=== PATIENT | male | born 1990 | race Caucasian/White ===

== ENCOUNTER 2017-01-14 02:24 | Emergency (ER) | payer OTHER ==
[~2017-01-14] VITALS: Ht 180.3 cm; Wt 142.1 kg
[2017-01-14 02:30] VITALS: TEMP 36.5; Ht 180.3 cm; Wt 142.1 kg
[2017-01-14] MEDS ORDERED: SODIUM CHLORIDE 0.9% 1000ML 1,000 ML IV ONE (02:45)
[2017-01-14 03:12] LABS: URINE APPEARANCE CLEAR (CLEAR); URINE BILIRUBIN NEG (NEG); URINE COLOR YELLOW; URINE EPITHELIAL CELL AUTO 0-5 /lpf (0-5); URINE NITRITE NEG (NEG); URINE SPECIFIC GRAVITY 1.018 (1.000-1.030); UROBILINOGEN NEG (NEG); ZZUR CULT IF INDIC CLEAN CATCH NO
[2017-01-14 03:12] LABS: BASO % 0.6 %; BASO ABS # 0.06 K/uL (0-0.2); COMPLETE YES; EOS % 4.8 %; HEMATOCRIT 43.4 % (42-52); IG% 0.5 %; LYMPH % 36.6 %; LYMPH ABS # 3.91 K/uL (1.2-3.4); MEAN CELL VOLUME 84.1 fL (80-100); MEAN CORPUSCULAR HEMOGLOBIN 29.8 pg (25-34); MEAN CORPUSCULAR HGB CONC 35.5 g/dl (32-36); MEAN PLATELET VOLUME 10.8 fL (7.4-10.4); NEUT % 48.5 %; PLATELET COUNT 261 K/uL (130-400); RED BLOOD COUNT 5.16 M/uL (4.7-6.1); WHITE BLOOD COUNT 10.67 K/uL (4.8-10.8)
[2017-01-14 03:17] LABS: MANUAL MICROSCOPIC REQUIRED? NO; REVIEW REQ? NO
[2017-01-14 03:23] LABS: CALCIUM 8.8 mg/dl (8.5-10.1); CREATININE 0.78 mg/dl (0.60-1.40); POTASSIUM 2.5 mmol/L (3.5-5.1)
[2017-01-14] MEDS ORDERED: POTASSIUM CHLORIDE 10 MEQ TABCR PO STA (03:24)
[2017-01-14] MEDS ORDERED: POTASSIUM CHLR 20 MEQ / WTR 20 MEQ in PREMIXED WATER 100 ML IV STA (03:24)
[2017-01-14 03:33] LABS: ALB/GLOB RATIO 1.2 (0.9-2); THYROID STIMULATING HORMONE 1.27 uIu/ml (0.300-4.500)
[2017-01-14] MEDS ORDERED: POTASSIUM CHLORIDE 10 MEQ / 100ML WTR IV ONE (03:41)
[2017-01-14 03:51] VITALS: O2SAT 93
[2017-01-14 06:52] LABS: POINT OF CARE TROPONIN I < 0.030 ng/ml (0-0.045)
[2017-01-14 07:33] VITALS: BP 101/49; PULSE 86; O2SAT 97
--- NOTE | 2017-01-14 08:46 | DIAGNOSTIC IMAGING REPORT ---
CHEST ONE VIEW PORTABLE HISTORY: Atypical Chest pain COMPARISON: None. FINDINGS: The lungs are clear. Cardiac silhouette is normal in size. No pleural effusions. No pneumothorax. IMPRESSION: No acute process. Electronically signed by: Jai Riley M.D. 01/14/2017 8:45 AM Dictated Date/Time: 01/14/2017 8:45 AM
--- NOTE | 2017-01-15 02:23 | EMERGENCY ROOM VISIT NOTE ---
History First contact with patient: 02:37 Chief Complaint: CHEST PAIN Stated Complaint: CHEST PAIN/SHORT OF BREATH Nursing Triage Summary: pt reports that he was drinking downtown since 1700. pt had sudden onset of left sided chest pain at 0130 with SOB and diaphoretic. History of Present Illness The patient is a 26 year old male who presents to the Emergency Room with complaints of vague central left-sided chest pain that began approximately one hour prior to arrival. The patient states that he works out of town and is home for the weekend. He went drinking with his significant other tonight, and they were waiting for their ride home from the night, when the patient began experiencing his discomfort. He did feel somewhat short of breath and nauseated. The patient's symptoms persisted for a few moments and are slowly improving. The patient has not had recent fever or chills. No injury or trauma. He does not report nausea or vomiting. He has not been smoking anything tonight or doing drugs. He does admit to drinking alcohol tonight. He does have a history of borderline hypertension but is otherwise considered healthy. He rates his current discomfort a 3/10. Review of Systems More than 10 systems were reviewed and otherwise negative with the exception of history of present illness. Past Medical/Surgical History No chronic medical disease Family History No pertinent family history Social History Smoking Status: Current Every Day Smoker Housing Status: lives with significant other Occupation Status: employed Current/Historical Medications No Active Prescriptions or Reported Meds Physical Exam Vital Signs Date Time Temp Pulse Resp B/P (MAP) Pulse Ox O2 Delivery O2 Flow Rate FiO2 01/14/17 07:33 86 20 101/49 97 01/14/17 06:33 96 16 129/77 97 Room Air 01/14/17 06:05 90 01/14/17 06:00 87 23 111/62 98 Nasal Cannula 2.0 01/14/17 05:47 89 21 108/60 99 Nasal Cannula 2.0 01/14/17 05:17 91 20 99 01/14/17 05:00 91 20 113/75 99 Nasal Cannula 2.0 01/14/17 04:46 95 22 103/70 93 Nasal Cannula 2.0 01/14/17 03:51 95 24 113/53 93 Nasal Cannula 2.0 01/14/17 03:51 93 Nasal Cannula 2.0 01/14/17 02:49 95 Room Air 01/14/17 02:32 102 01/14/17 02:30 36.5 102 28 131/70 97 Room Air 01/14/17 02:30 95 Room Air Pain Rating (0-10): 0 Physical Exam VITALS: Vitals are noted on the nurse's note and reviewed by myself. Vital signs stable. GENERAL: Well-developed, well-nourished, white male, who is in no acute distress and resting comfortably. Patient is cooperative with the examination. HEAD: Normocephalic atraumatic. EARS: External ear normal. External auditory canals clear, tympanic membranes pearly lopez without erythema or effusion bilaterally. EYES: Pupils equal round and reactive to light and accommodation. Conjunctivae without injection, sclerae without icterus. Extraocular movements intact. NOSE: Patent, turbinates without inflammation or discharge. MOUTH: Mucous membranes moist. Tonsils are not enlarged. Pharynx without erythema, blood, or exudate. Uvula midline. Airway patent. NECK: Supple without nuchal rigidity. No lymphadenopathy. No thyromegaly. Cervical spine is nontender. HEART: Regular rate and rhythm without murmurs gallops or rubs. LUNGS: Clear to auscultation bilaterally without wheezes, rales or rhonchi. No retractions or accessory muscle use. ABDOMEN: Positive normal bowel sounds x 4. Soft, nontender, without masses or organomegaly. No guarding or rebound tenderness. MUSCULOSKELETAL: No muscle atrophy, erythema, or edema noted. Full range of motion without joint tenderness in all extremities. Negative Homans sign Medical Decision & Procedures ER Provider Diagnostic Interpretation: CHEST ONE VIEW PORTABLE HISTORY: Atypical Chest pain COMPARISON: None. FINDINGS: The lungs are clear. Cardiac silhouette is normal in size. No pleural effusions. No pneumothorax. IMPRESSION: No acute process. Laboratory Results 01/14/17 02:40 Red Blood Count 5.16, Mean Corpuscular Volume 84.1, Mean Corpuscular Hemoglobin 29.8, Mean Corpuscular Hemoglobin Concent 35.5, Mean Platelet Volume 10.8, Neutrophils (%) (Auto) 48.5, Lymphocytes (%) (Auto) 36.6, Monocytes (%) (Auto) 9.0, Eosinophils (%) (Auto) 4.8, Basophils (%) (Auto) 0.6, Neutrophils # (Auto) 5.18, Lymphocytes # (Auto) 3.91, Monocytes # (Auto) 0.96, Eosinophils # (Auto) 0.51, Basophils # (Auto) 0.06 01/14/17 02:40 Test 01/14/17 02:40 01/14/17 03:00 01/14/17 06:32 White Blood Count 10.67 K/uL (4.8-10.8) Red Blood Count 5.16 M/uL (4.7-6.1) Hemoglobin 15.4 g/dL (14.0-18.0) Hematocrit 43.4 % (42-52) Mean Corpuscular Volume 84.1 fL (80-100) Mean Corpuscular Hemoglobin 29.8 pg (25-34) Mean Corpuscular Hemoglobin Concent 35.5 g/dl (32-36) Platelet Count 261 K/uL (130-400) Mean Platelet Volume 10.8 fL (7.4-10.4) Neutrophils (%) (Auto) 48.5 % Lymphocytes (%) (Auto) 36.6 % Monocytes (%) (Auto) 9.0 % Eosinophils (%) (Auto) 4.8 % Basophils (%) (Auto) 0.6 % Neutrophils # (Auto) 5.18 K/uL (1.4-6.5) Lymphocytes # (Auto) 3.91 K/uL (1.2-3.4) Monocytes # (Auto) 0.96 K/uL (0.11-0.59) Eosinophils # (Auto) 0.51 K/uL (0-0.5) Basophils # (Auto) 0.06 K/uL (0-0.2) RDW Standard Deviation 39.6 fL (36.4-46.3) RDW Coefficient of Variation 13.0 % (11.5-14.5) Immature Granulocyte % (Auto) 0.5 % Immature Granulocyte # (Auto) 0.05 K/uL (0.00-0.02) Anion Gap 10.0 mmol/L (3-11) Est Creatinine Clear Calc Drug Dose 207.0 ml/min Estimated GFR () 144.4 Estimated GFR (Non- 124.6 BUN/Creatinine Ratio 11.0 (10-20) Calcium Level 8.8 mg/dl (8.5-10.1) Total Bilirubin 0.3 mg/dl (0.2-1) Aspartate Amino Transf (AST/SGOT) 20 U/L (15-37) Alanine Aminotransferase (ALT/SGPT) 41 U/L (12-78) Alkaline Phosphatase 59 U/L (45-117) Total Protein 7.8 gm/dl (6.4-8.2) Albumin 4.2 gm/dl (3.4-5.0) Globulin 3.6 gm/dl (2.5-4.0) Albumin/Globulin Ratio 1.2 (0.9-2) Lipase 120 U/L (73-393) Thyroid Stimulating Hormone (TSH) 1.270 uIu/ml (0.300-4.500) Ethyl Alcohol mg/dL 159.0 mg/dl (0-3) Urine Color YELLOW Urine Appearance CLEAR (CLEAR) Urine pH 5.0 (4.5-7.5) Urine Specific [place] 1.018 (1.000-1.030) Urine Protein NEG (NEG) Urine Glucose (UA) NEG (NEG) Urine Ketones NEG (NEG) Urine Occult Blood NEG (NEG) Urine Nitrite NEG (NEG) Urine Bilirubin NEG (NEG) Urine Urobilinogen NEG (NEG) Urine Leukocyte Esterase TRACE (NEG) Urine WBC (Auto) 0 /hpf (0-5) Urine RBC (Auto) 0-4 /hpf (0-4) Urine Hyaline Casts (Auto) 0 /lpf (0-5) Urine Epithelial Cells (Auto) 0-5 /lpf (0-5) Urine Bacteria (Auto) NEG (NEG) Bedside D-Dimer 209 ng/mlFEU (0-450) Bedside Troponin I < 0.030 ng/ml (0-0.045) Medications Administered Medications (Trade) Dose Ordered Sig/Rupert Route Start Time Stop Time Status Last Admin Dose Admin Sodium Chloride 1,000 ml @ 999 mls/hr Q1H1M ONCE IV 01/14/17 02:45 01/14/17 03:45 DC 01/14/17 03:02 999 MLS/HR Potassium Chloride (Klor-Con M10) 20 meq NOW STAT PO 01/14/17 03:24 01/14/17 03:27 DC 01/14/17 03:42 20 MEQ Potassium Chloride (Kcl 10 Meq / Wtr) 20 meq STK-MED ONCE IV 01/14/17 03:41 8/6/17 03:42 DC 01/14/17 03:43 20 MEQ ED Course Physical exam and history were performed. Nursing notes, EMR, and Medication List were personally reviewed. Patient appears to have chest pain for the past one hour. The patient has been drinking alcohol tonight. He does not appear toxic or in significant distress on examination. IV access was established and labs were obtained. The patient was hydrated with normal saline. EKG was performed and was sinus tachycardia without acute ST elevation or evidence of ischemia. Chest x-ray was ordered. The patient was placed on the etl architect. The patient's blood work is as above and was reviewed. He does not have a significantly elevated white blood cell count, gross anemia, or bandemia. He does have a decreased potassium and was given both IV and oral potassium here in the department. Lipase and transaminases are nondiagnostic. Troponin 2 was negative. D-dimer is negative. His alcohol is elevated, which was expected as he has been drinking tonight. Chest x-ray was without acute findings. The patient was monitored here for greater than 5 hours here in the department. He was able to sober up and was essentially without any pain by the end of his department stay. I discussed options of care with the patient, including admission to the hospital for his low potassium. The patient felt comfortable with discharge home, indicating that he will eat a higher potassium diet and have his labs rechecked in the next 1-2 days. This appears reasonable. The patient was invited back to the emergency department if he is not able to get in with his primary care physician. He was otherwise asked to return with any new, worsening, or concerning symptoms. He voiced understanding and rated his discomfort a 0/10 at the time of departure. The chart was completed utilizing [employer] Speech Voice Recognition Software. Grammatical errors, random word insertions, pronoun errors, and incomplete sentences are an occasional consequence of this system due to software limitations, ambient noise, and hardware issues. Any formal questions or concerns about the content, text, or information contained within the body of this dictation should be directly addressed to the provider for clarification. . Medical Decision Differential diagnosis includes, but is not limited to: Myocardial infarction, dysrhythmia, pericarditis, pneumothorax, aortic aneurysm/dissection, DVT/PE, anxiety, GERD, PUD, electrolyte imbalance, thyroid disorder, pneumonia, bronchitis, pancreatitis, and others Medication Reconcilliation Current Medication List: was personally reviewed by me Blood Pressure Screening Blood pressure disposition: Referred to PCP Impression Primary Impression: Chest pain Additional Impression: Low serum potassium Departure Information Dispostion Home / Self-Care Condition GOOD Prescriptions No Active Prescriptions or Reported Meds Forms HOME CARE DOCUMENTATION FORM, IMPORTANT VISIT INFORMATION Patient Instructions My [facility] Additional Instructions You were seen and evaluated today on an emergency basis only. This is not a substitute for, or an effort to provide, complete comprehensive medical care. It is not possible to recognize and treat all injuries or illnesses in a single emergency department visit. For this reason it is recommended that you followup with your primary care physician in the next 48-72 hours for recheck. You will need a repeat potassium level. Drink plenty of fluids and remain well hydrated. For baseline pain relief you may alternate ibuprofen and acetaminophen every 4 hours for pain control. Take 600 mg ibuprofen (Advil) and then 4 hours later take 1000 mg acetaminophen (Tylenol). Do not take more than 3000 mg acetaminophen in a single day. Increase dietary potassium You are welcome to return to the emergency department anytime with new, worsening, or concerning symptoms. Problem Qualifiers
== END 2017-01-14 07:35 | disposition home or self-care (01) ==
LOC: EDBD 02:24 → C.EDB 02:26
DX: R07.9 Chest pain, unspecified (principal); E87.6 Hypokalemia; F17.200 Nicotine dependence, unspecified, uncomplicated